=== PATIENT | male | born 1995 | race Caucasian/White ===

== ENCOUNTER 2018-10-07 15:59 | Emergency (ER) | payer SELFPAY ==
[~2018-10-07] VITALS: Ht 188 cm; Wt 95.3 kg
--- NOTE | 2018-10-07 15:59 | NUR ---
Patient to ER bed 1 to gown for evaluation. Side rails up.
[2018-10-07 16:02] VITALS: BP_SYST 132
--- NOTE | 2018-10-07 16:04 | NUR ---
PATIENT CAME FROM [facility]. SISTER STATES THAT THIS IS HIS SECOND SEIZURE IN ABOUT 6 YEARS. PATIENT HAS HISTORY OF AUTISUM AND IS NON VERBAL. PATIENT AWAKE AND ALERT AT MOMENT AND NODS YES AND NO TO QUESTIONS. SISTER STATES THAT PATIENT WAS GOING DOWN SLIDE WHEN SEIZURE HAPPENED AND WHEN HE GOT TO BOTTOM PATIENT WAS SPLASHING AROUND AND FAMILY TRIED TO CALM HIM DOWN WHEN THEY REALIZED HE WAS HAVING SEIZURE. PATIENT NOT COMPLAINING OF PAIN OR SOB AT MOMENT.
--- NOTE | 2018-10-07 16:14 | NUR ---
ER Dr. CALI at bedside examining patient.
--- NOTE | 2018-10-07 16:28 | NUR ---
PATIENT HAVING LABS DRAWN IN BED.
[2018-10-07 16:39] LABS: BASOPHILS % (AUTO) 0.3 % (0.0-2.0); EOSINOPHILS # (AUTO) 0.1 K/uL (0.0-0.4); EOSINOPHILS % (AUTO) 0.9 % (0.0-4.0); HEMATOCRIT 42.7 % (36-54); HEMOGLOBIN 14.4 g/dL (14.0-18.0); LYMPHOCYTES # (AUTO) 1.9 K/uL (1.0-5.5); MEAN CORPUSCULAR HEMOGLOBIN 29 pg (27-31); MEAN CORPUSCULAR HGB CONC 34 % (32-36); MEAN CORPUSCULAR VOLUME 86 fL (79.0-98.0); MONOCYTES # (AUTO) 0.6 K/uL (0.0-1.0); MONOCYTES % (AUTO) 4.9 % (1.7-9.3); NEUTROPHILS # (AUTO) 10.1 K/uL (1.8-7.7); NEUTROPHILS % (AUTO) 78.9 % (40.0-70.0); PLATELET COUNT (AUTO) 227 K/uL (130-430); RED BLOOD CELL COUNT(AUTO) 4.99 MIL/uL (4.2-6.2); RED CELL DISTRIBUTION WIDTH 13.6 % (9.0-15.0); WHITE BLOOD COUNT (AUTO) 12.8 K/uL (4.8-10.8)
[2018-10-07 17:23] LABS: CALCIUM 9.4 mg/dL (8.4-11.0); CREATININE 1.14 mg/dL (0.55-1.30); POTASSIUM 3.5 mmol/L (3.5-5.1)
--- NOTE | 2018-10-07 17:23 | NUR ---
PATIENT RESTING IN BED WITH FAMILY AT BEDSIDE. PATIENT HASNT HAD ANY SEIZURE ACTVITY.
[2018-10-07 17:28] LABS: ALBUMIN 3.8 g/dL (3.4-4.8); TOTAL BILIRUBIN 0.4 mg/dL (0.0-1.0)
[2018-10-07 18:09] VITALS: BP_SYST 144
== END 2018-10-07 18:09 | disposition home or self-care (01) ==
LOC: SED 15:59
DX: R56.9 Unspecified convulsions (principal); R03.0 Elevated blood-pressure reading, without diagnosis of hypertension
CPT/HCPCS: 36415; 80053; 85025; 99283